=== PATIENT | female | born 1930 | race Caucasian/White ===

== ENCOUNTER 2016-06-04 08:47 | Inpatient (IN) | payer MEDICARE, OTHER ==
[~2016-06-04] VITALS: Ht 152.4 cm; Wt 37.2 kg
[~2016-06-04 08:47] MED LIST: ARICEPT10 MG PO; ATIVAN0.5 MG PO; B-121000 MCG PO; CLARITIN10 MG PO; COLACE100 MG PO; CULTURELLE1 EACH PO; CYPROHEPTADINE H4 MG PO; DULCOLAX5 MG PO; FERROUS SULFAT325 MG PO; HYDROCODON-ACE1 EAC4 PO; LOPERAMIDE2 MG PO; PHENERGAN25 M1 PO; PRIMIDONE250 MG PO; PROCARDIA XL60 MG PO; PROTONIX40 MG PO; SYNTHROID125 MCG PO; TESSALON PERLE100 MG PO; TRAZODONE HCL50 MG PO; VANCOCIN HCL125 MG PO; ZOFRAN4 MG PO
--- NOTE | 2016-06-06 18:29 | NUR ---
1800- pt c/o sore throat, productive cough, and elevated temp of 100.7. TALYA Chamberlain notified. New orders for flu, strep and u/a screen. Prn tylenol and ativan given per pt request.
--- NOTE | 2016-06-08 04:15 | NUR ---
PATIENT NOTED WITH TEMP OF 100.0 ORAL NURSE ADMINISTERED TYLENOL 650MG PO AT 2019. PATIENT WITHOUT COMPLAINT OF PAIN, OR DISTRESS. SKIN DRY, PATIENT ALERT ORIENTED.
--- NOTE | 2016-06-08 04:16 | NUR ---
TEMPERATURE TAKEN AT 2115, TEMP 98.3 ORAL NO ACUTE DISTRESS NOTED.
== END 2016-06-08 14:11 | disposition home health service (06) | DRG 811 ==
LOC: ER 08:47 → MED 12:44
PROVIDERS: ADMIT Internal Medicine
PROC: 30233N1 Transfusion of Nonautologous Red Blood Cells into Peripheral Vein, Percutaneous Approach (ICD-10-PCS; principal; 2016-06-04)
DX: D64.9 Anemia, unspecified (principal); I50.33 Acute on chronic diastolic (congestive) heart failure; E87.0 Hyperosmolality and hypernatremia; I11.0 Hypertensive heart disease with heart failure; E87.6 Hypokalemia; J02.9 Acute pharyngitis, unspecified; J44.9 Chronic obstructive pulmonary disease, unspecified; K21.9 Gastro-esophageal reflux disease without esophagitis; Z66 Do not resuscitate; E03.9 Hypothyroidism, unspecified; F41.9 Anxiety disorder, unspecified; K58.9 Irritable bowel syndrome, unspecified; G20 Parkinson's disease; Z88.8 Allergy status to other drugs, medicaments and biological substances; Z91.013 Allergy to seafood; Z87.891 Personal history of nicotine dependence; Z80.8 Family history of malignant neoplasm of other organs or systems; Z79.899 Other long term (current) drug therapy; M19.90 Unspecified osteoarthritis, unspecified site
CPT/HCPCS: 36415; 84145; 87502; 87651; 93306; 97162-GP; 97166; J1940; P9021

== ENCOUNTER 2016-06-04 08:47 | Emergency (ER) | payer MEDICARE, OTHER | END 2016-06-04 12:43 | disposition critical access hospital (66) | LOC: ER 08:47 | DX: J44.1 Chronic obstructive pulmonary disease with (acute) exacerbation (principal); R09.02 Hypoxemia; E87.6 Hypokalemia; D50.9 Iron deficiency anemia, unspecified; E03.9 Hypothyroidism, unspecified; F41.9 Anxiety disorder, unspecified; D64.9 Anemia, unspecified; I10 Essential (primary) hypertension; Z87.891 Personal history of nicotine dependence; Z90.49 Acquired absence of other specified parts of digestive tract; Z79.899 Other long term (current) drug therapy; Z91.013 Allergy to seafood; Z88.8 Allergy status to other drugs, medicaments and biological substances | CPT/HCPCS: 36415; 84145; 87502; 96374; 96375; J1940 ==

== ENCOUNTER 2016-07-15 09:21 | Emergency (ER) | payer MEDICARE, OTHER | END 2016-07-15 11:04 | disposition critical access hospital (66) | LOC: ER 09:21 | DX: D64.9 Anemia, unspecified (principal); K92.2 Gastrointestinal hemorrhage, unspecified; J44.9 Chronic obstructive pulmonary disease, unspecified; I11.0 Hypertensive heart disease with heart failure; I50.30 Unspecified diastolic (congestive) heart failure; E03.9 Hypothyroidism, unspecified; F41.9 Anxiety disorder, unspecified; K58.9 Irritable bowel syndrome, unspecified; G20 Parkinson's disease; Z90.49 Acquired absence of other specified parts of digestive tract; Z87.891 Personal history of nicotine dependence; Z88.8 Allergy status to other drugs, medicaments and biological substances; Z91.013 Allergy to seafood | CPT/HCPCS: 36415 ==

== ENCOUNTER 2016-07-15 09:21 | Inpatient (IN) | payer MEDICARE, OTHER ==
[~2016-07-15] VITALS: Ht 152.4 cm; Wt 38.7 kg
== END 2016-07-17 14:12 | disposition home health service (06) | DRG 812 ==
LOC: ER 09:21 → MED 11:05
PROVIDERS: ADMIT Internal Medicine
PROC: 30233N1 Transfusion of Nonautologous Red Blood Cells into Peripheral Vein, Percutaneous Approach (ICD-10-PCS; principal; 2016-07-15)
DX: D62 Acute posthemorrhagic anemia (principal); K92.2 Gastrointestinal hemorrhage, unspecified; I50.32 Chronic diastolic (congestive) heart failure; E87.0 Hyperosmolality and hypernatremia; J44.9 Chronic obstructive pulmonary disease, unspecified; Z99.81 Dependence on supplemental oxygen; E03.9 Hypothyroidism, unspecified; G20 Parkinson's disease; F41.9 Anxiety disorder, unspecified; K58.9 Irritable bowel syndrome, unspecified; I73.9 Peripheral vascular disease, unspecified; K21.9 Gastro-esophageal reflux disease without esophagitis; Z88.8 Allergy status to other drugs, medicaments and biological substances; Z91.013 Allergy to seafood; Z79.899 Other long term (current) drug therapy; Z87.891 Personal history of nicotine dependence; Z80.8 Family history of malignant neoplasm of other organs or systems; Z66 Do not resuscitate
CPT/HCPCS: 36415; 97161-GP; 97166; P9021